=== PATIENT | male | born 1995 | race Caucasian/White ===

== ENCOUNTER 2016-11-27 19:30 | Emergency (ER) | payer OTHER ==
[~2016-11-27 19:30] MED LIST: GAS RELIEF125 MG PO
== END 2016-11-27 21:40 | disposition home or self-care (01) ==
LOC: ER1 19:30
DX: T63.441A Toxic effect of venom of bees, accidental (unintentional), initial encounter (principal)
CPT/HCPCS: 96361; 96374; 96375; 99282; J1200; J2930; J7030